=== PATIENT | male | born 1990 | race Two or more races ===

== ENCOUNTER 2022-09-02 02:44 | Emergency (ER) | payer OTHER ==
[~2022-09-02] VITALS: Ht 172.7 cm; Wt 76.2 kg
[2022-09-02] MEDS ORDERED: PROPARACAINE HCL 0.5% OP SOLN 15 ML BTL OP STA (03:00)
[2022-09-02] MEDS ORDERED: CILOXAN5 ML OU (03:18)
[2022-09-02 03:20] VITALS: BP 130/83
== END 2022-09-02 03:28 | disposition home or self-care (01) ==
LOC: FSED 02:59
DX: S05.92XA Unspecified injury of left eye and orbit, initial encounter (principal); S05.91XA Unspecified injury of right eye and orbit, initial encounter; S05.02XA Injury of conjunctiva and corneal abrasion without foreign body, left eye, initial encounter; S05.01XA Injury of conjunctiva and corneal abrasion without foreign body, right eye, initial encounter; X37.3XXA Dust storm, initial encounter; Y99.0 Civilian activity done for income or pay
CPT/HCPCS: 99283